=== PATIENT | male | born 1950 | race Caucasian/White ===

== ENCOUNTER 2024-10-07 09:02 | Day surgery (SDC) | payer BC, SELFPAY ==
--- NOTE | 2024-09-23 07:42 | HPS.HSE ---
Family Physician
-
Family Physician: NOT KNOW UNKNOWN - PT DOES
Chief Complaint
-
Paroxysmal atrial fibrillation.
History of Present Illness
The patient is a 74 year old male presenting today for paroxysmal atrial fibrillation. He was initially diagnosed with atrial fibrillation in the early 1999s. The patient reports rare palpitations and lightheadedness associated with this
diagnosis. He previously underwent 2 cardioversions for his arrhythmia. He is on current pharmacological therapy with Diltiazem. He was intolerant to Propafenone and Amiodarone in the past. He reports he has been compliant with Eliquis for oral
anticoagulation due to a CHADS-VASc of 3. He states that his atrial fibrillation symptoms greatly interfere with his activities of daily living and overall impact his quality of life. He is interested in pursuing pulmonary vein isolation for further
arrhythmia management. He denies any current complaints such as chest pain, shortness of breath at rest, nausea, vomiting, diarrhea, dizziness, cough, sore throat, or fever.
Medical History
Past Medical History
Past Medical History: Reports Other
Additional Past Medical History:
1. Paroxysmal atrial fibrillation, status post cardioversion x2; pharmacological therapy with Diltiazem and oral anticoagulation with Eliquis.
2. Hypertension.
3. Hypercholesterolemia.
4. Left ventricular hypertrophy.
5. Venous varicosities.
6. Suspected obstructive sleep apnea, sleep study advised.
7. Non-insulin dependent diabetes.
8. Colon polyps.
9. Diverticulosis.
10. Irritable bowel syndrome.
11. Migraines with aura.
12. Obesity, BMI 37.2.
Past Surgical History: Reports Other
Additional Past Surgical History:
1. Cardioversion x2.
2. Laparoscopic cholecystectomy.
3. Colonoscopy.
Social History
Tobacco: Non-smoker
Alcohol: Other (Rare use reported. )
Personal:
Living: Other (He lives in a 2 story home with his . )
Family History
Family History: Not pertinent
Allergies / Home Medications
Allergy/Medication List:
Home medications:
1. Eliquis 5 mg p.o. twice a day.
2. Atorvastatin 20 mg p.o. daily.
3. Diltiazem 240 mg p.o. twice a day.
4. Hydrochlorothiazide 25 mg p.o. daily.
5. Lisinopril 20 mg p.o. daily.
6. Metformin 1000 mg p.o. twice a day.
7. Vitamin B12 1000 mcg p.o. daily.
Allergies: No known allergies.
Review of Systems
-
A 12 point ROS was completed and negative except as noted: Yes
Physical Exam
Vital Signs
Blood pressure 154/98. Heart rate 80. Respirations 18. Pulse ox 96% on room air.
Height 5 feet, 7 inches. Weight 107.8 kg. BMI 37.2.
Physical Exam
General: Well Developed, Well Nourished and No Apparent Distress
HEENT: NormoCephalic, Moist mucous membranes, Atraumatic and PERRLA
Respiratory: Clear
Cardiac: Irregular Rhythm
GI: Soft, Non Tender, Non Distended and Other (Obese. )
Musculoskeletal: Normal Gait & Station and Other (Trace sock-line edema of bilateral lower extremities. )
Skin: Warm and Dry
Neuro: AO x 3 and Nonfocal/grossly intact
Laboratory Results
-
DIAGNOSTIC STUDIES as of 09/23/2024: White blood cell count 10.6. Hemoglobin 16.1. Platelet count 266,000. PT 14.0. INR 1.05. Sodium 136. Potassium 4.4. BUN 20. Creatinine 1.1. Glucose 146. Calcium 10.2. Magnesium 1.9. AST 23. ALT 23. Albumin 4.6.
Type and screen A positive.
EKG 09/23/2024: Atrial fibrillation. Left axis deviation. Septal and inferior infarct, age undetermined.
Chest CT 09/23/2024: No left atrial filling defect/thrombus is identified. Single, individual left superior and inferior pulmonary veins. Ostial insertion of a right middle lobe pulmonary vein at the posterior inferior margin of the right superior
pulmonary venous ostium.
Echocardiogram 10/22/2017: Normal biventricular size and systolic function without regional wall motion abnormality. Ejection fraction is 55%. Normal atrial dimensions. Aortic sclerosis with trace aortic insufficiency. No evidence for pulmonary
hypertension. No prior for comparison.
Impression/Plan
-
IMPRESSION/PLAN:
1. Paroxysmal atrial fibrillation: The patient is in need of pulmonary vein isolation with Dr. Donaldo Drake on 10/07/2024. The benefits and risks of the procedure have been explained to the patient. The patient understands these risks and wishes to
proceed. He will not be required to undergo a pre-procedural transesophageal echocardiogram as he has been compliant with his home oral anticoagulation. He is aware to continue Eliquis uninterrupted prior to his procedure. He will take no
medications the morning of his ablation.
[2024-09-23 12:45] VITALS: BMI 37.3
[2024-09-23 13:24] LABS: % Basophils 0.9 % (0-2); % Eosinophils 2.7 % (0-6); % Immature Granulocytes 0.5 % (0-0.5); % Lymphocytes 24.3 % (20.5-51.1); % Monocytes 9.7 % (1.7-9.3); % Neutrophils 61.9 % (42.2-75.2); Absolute Basophils 0.1 10^3/uL (0-0.2); Absolute Eosinophils 0.3 10^3/uL (0-0.7); Absolute Immature Granulocytes 0.1 10^3/uL (0-0.05); Absolute Lymphocytes 2.6 10^3/uL (1.2-3.4); Absolute Neutrophils 6.6 10^3/uL (1.4-6.5); Hematocrit 46.3 % (39.0-52.0); Hemoglobin 16.1 g/dL (13.0-18.0); Mean Corp Hgb Conc. 34.8 g/dL (33.0-37.0); Mean Corpuscular Hgb 30.9 pg (27.0-31.0); Mean Corpuscular Volume 88.9 fL (80.0-94.0); Mean Platelet Volume 9.6 fL (7.4-10.4); Nucleated Red Blood Cells % 0 % (-); Platelet Count 266 10^3/uL (130-400); Red Blood Cell Count 5.21 10^6/uL (4.70-6.10); Red Cell Dist. Width 12.6 % (11.5-14.5); White Blood Cell Count 10.6 10^3/uL (4.8-10.8)
[2024-09-23 13:36] LABS: ALT (SGPT) 23 U/L (0-50); AST (SGOT) 23 U/L (17-59); Albumin 4.6 g/dl (3.5-5.0); Alkaline Phosphatase 63 U/L (38-126); Blood Urea Nitrogen 20 mg/dl (9-20); Calcium 10.2 mg/dl (8.4-10.2); Carbon Dioxide 23 mmol/L (22-30); Chloride 101 mmol/L (98-107); Estimated Creatinine Clearance 69 ml/min; Glucose 146 mg/dl (70-99); Magnesium 1.9 mg/dl (1.6-2.3); Potassium 4.4 mmol/L (3.5-5.1); Sodium 136 mmol/L (135-145); Total Bilirubin 0.7 mg/dl (0.2-1.3); Total Protein 7.3 g/dl (6.3-8.2); eGFR > 60.00
[2024-09-23 13:37] LABS: INR 1.05
[2024-10-07] VITALS (11 sets, daily range): BP systolic 113–156; BP diastolic 72–93; BMI 37.0
[2024-10-07 09:43] LABS: Glucose - Point of Care 177 mg/dl (70-99)
[2024-10-07 12:16] LABS: ACT-LR - POC 203 Seconds (116-155)
[2024-10-07 12:30] LABS: ACT-LR - POC 326 Seconds (116-155)
[2024-10-07 12:48] LABS: ACT-LR - POC 329 Seconds (116-155)
[2024-10-07 13:12] LABS: ACT-LR - POC 285 Seconds (116-155)
[2024-10-07 13:32] LABS: ACT-LR - POC 343 Seconds (116-155)
[2024-10-07 13:46] LABS: ACT-LR - POC 271 Seconds (116-155)
[2024-10-07 14:43] LABS: Glucose - Point of Care 152 mg/dl (70-99)
--- NOTE | 2024-10-07 16:25 | ITS.CL.ABL ---
[employer]sembler - Ablation
Ablation
Procedure Report:
Primary Senior Php Software Developer: Darnell Swanson MD
Procedure Date: 10/07/2024
Patient History:
Patient is a pleasant 74-year-old male with a past medical history significant for hypercholesterolemia hypertension diabetes mellitus type 2 obesity, symptomatic persistent atrial fibrillation.
See H&P for complete details.
Indication:
Symptomatic persistent atrial fibrillation
Arrhythmia Specific History:
Prior Medical Therapies for Rate and Rhythm Control:
[ ] Beta-shamika
X Calcium channel-shamika
X Amiodarone
[ ] Dronederone
[ ] Sotalol
[ ] Flecainide
X Propafenone
[ ] Dofetilide
[ ] Options limited by bradycardia
[ ] Options limited by comorbid renal disease
Prior Procedural Therapies for AF/AFL:
[ ] Cardioversion
[ ] Pulmonary Vein Isolation
[ ] Posterior Wall Isolation
[ ] Additional lines (Specify)
[ ] Surgical Francois-MAZE or PVI (Specify)
Procedure Performed:
X AF ablation procedure (94547) -- includes LA/CS pacing, trans-septal, 3D mapping, + ICE
[ ] +IV drug (33491)
[ ] +Other Arrhythmia (84188)
X +Other AF Line/ablation (83033) - posterior wall (floor, roof, wall)
Risks and expected recovery has been explained in detail. Alternative options have been explored, and in a shared-decision making fashion we have decided that this was the most appropriate procedure.
Method
NPO status confirmed. Grounding pad applied. Defibrillator pads applied. Continuous surface ECG, pulse oximetry, and blood pressure were monitored. Procedure was performed under general anesthesia, with anesthesia services.
A GLENN was performed to rule out left atrial appendage thrombus. There is no evidence of left atrial appendage thrombus. Please see separate report by Dr. Herbert for details.
Both groins were clipped, prepped with Chloraprep, and draped in sterile fashion. Time out was called. Local anesthesia administered with bupivacaine. The right femoral vein was accessed for catheter placement, using ultrasound guidance (images
saved to record), micro-puncture needle/wire, and modified seldinger technique. 3 sheaths were placed. The following catheters were used:
[ ] Tacticath SE (D/F Curve) ablation catheter
X Viewflex 9Fr ICE catheter
X Inquiry decapolar 6Fr diagnostic catheter
[ ] CRD Hex 6Fr
[ ] Arctic Front Advance Cryoballoon ([ ]28mm[ ]23mm)
[ ] Achieve Advance mapping catheter ([ ]15mm[ ]20mm)
X FlexCath Contour 10 Fr with PulseSelect PFA Catheter
X Advisor HD Grid Mapping Catheter, SE
[ ] AcusGeoOptics AcuNav 8 Fr ICE catheter
[ ]Other: [ ]
Intracardiac ultrasound (ICE) was carefully advanced into the right atrium to guide sheath placement over a J-wire, catheter placement, guide trans-septal puncture, identify potential complications, identify anatomic structures and ensure proper
contact between ablation catheter and tissue. A trace basal LV pericardial effusion was noted at the start of procedure which remained unchanged during procedure and at case completion.
Heparin was given prior to trans-septal puncture. Heparin was given to achieve and maintain a target ACT of 300-400 seconds throughout the procedure.
Trans-septal access was performed under ICE guidance. The trans-septal puncture was performed with a SafeSept wire through a Brockenbrough needle assembly through the steerable sheath. The wire was visualized as it entered the LSPV and system
advanced under ICE guidance and fluoroscopy into the LA. The Brockenbrough needle assembly, SafeSept wire and sheath dilator were removed under negative pressure. LA pressure was measured and recorded.
ICE and 3D mapping was performed to identify relevant cardiac structures. Prior to mapping, a 200 J synchronized DCCV was performed for yazidism of sinus rhythm. However, there was spontaneous return of atrial fibrillation. A careful 3D map
was created to assess for regions of low-voltage and abnormal electrogram signals using HD grid mapping catheter and PulseSelect catheter. Additional mapping was performed as outlined below.
Prior to ablation, glycopyrrolate was provided. PulseSelect catheter was advanced over J-wire to the ostium of each vein. Pulmonary vein isolation was performed with ostial and antral lesions in a circumferential manner. Contact was visualized via
EAM, ICE, fluoroscopy, and EGM signals. Posterior wall isolation was performed by anchoring the J-wire within the pulmonary vein and placing the PulseSelect catheter in contact with the posterior wall as visualized by aforementioned methods.
Following completion of ablation lesions, sinus rhythm was restored with a 200J synchronized DCCV and a post-ablation voltage/activation map was performed in sinus rhythm. Entrance and exit block were confirmed for each vein and the posterior wall.
Catheter and sheath were removed from the left atrium and post-ablation intracardiac echo evaluation was consistent with pre-ablation with no changes and no pericardial effusion and there is no left atrial thrombus or left ventricle thrombus seen.
Electrophysiology study was performed. Hemostasis was obtained with figure of 8 stitch for each groin and with manual pressure. Protamine was used for reversal.
Estimated Blood Loss
10 mL
Complications
None
Fluoroscopy: 3.2 minutes; 52.86 mGy; DAP 5.67
Baseline Intervals:
Rhythm: AF
QRS: 88 ms
Post-Procedure Intervals:
TX: 175 ms
QRS: 79 ms
QT: 331 ms
QTc: 399 ms
A-A: 689 ms
R-R: 689 ms
AVWB: 360 ms
AERP: 600/250 ms
Recommendations
- Bedrest with straight-leg precautions as ordered
- Anticipate same day discharge if patient meeting clinical metrics
- Resume home medications as indicated
- Ok to resume anticoagulation tonight if patient and groin sites stable
- PPI daily for 30 days
- Plan for follow-up in office as scheduled
Donaldo Drake DO, FACC
Clinical Cardiac Research Home Economist
cc: Darnell Swanson MD; Nitin Kidd MD
--- NOTE | 2024-10-07 17:12 | W.PN.UPDATE ---
Update Note
Progress Note Update
74 yo WM s/p PVI (same day). He denies cp, sob, zaina diet, mild sore throat, EKG SR, R fem site c/d/i, soft. He will resume Eliquis tonight. He will continue diltiazem and add PPI for 30 days. Activity restrictions reviewed. He will f/u Dr. Swanson
in 2 mo. He is for d/c home after 630p if groin stable.
== END 2024-10-07 18:30 | disposition home or self-care (01) ==
LOC: CATH 09:02
PROVIDERS: ATTENDING PHYSICIAN Internal Medicine Cardiovascular Disease; FAMILY PHYSICIAN Internal Medicine; OTHER PHYSICIAN Internal Medicine Cardiovascular Disease
DX: I48.19 Other persistent atrial fibrillation (principal); E11.9 Type 2 diabetes mellitus without complications; E66.9 Obesity, unspecified; E78.00 Pure hypercholesterolemia, unspecified; I10 Essential (primary) hypertension; Z68.37 Body mass index [BMI] 37.0-37.9, adult; Z79.01 Long term (current) use of anticoagulants; K58.9 Irritable bowel syndrome, unspecified; Z79.84 Long term (current) use of oral hypoglycemic drugs; Z79.899 Other long term (current) drug therapy; Z86.0100 Personal history of colon polyps, unspecified; Z90.49 Acquired absence of other specified parts of digestive tract; G47.33 Obstructive sleep apnea (adult) (pediatric); I51.7 Cardiomegaly; G43.109 Migraine with aura, not intractable, without status migrainosus; K57.90 Diverticulosis of intestine, part unspecified, without perforation or abscess without bleeding; I31.39 Other pericardial effusion (noninflammatory)
CPT/HCPCS: 93312; 93320; 93325; C1732; C1894; C1730; C1733; C1769; C1759; 36415; 75572; 80053; 82962; 83735; 85025; 85347; 85610; 86850; 86900; 86901; 93005; 93656; 93657; C1766; Q9967